=== PATIENT | male | born 1955 | race Two or more races ===

== ENCOUNTER 2022-05-22 08:35 | Day surgery (SDC) | payer OTHER ==
[~2022-05-22] VITALS: Ht 175.3 cm; Wt 72.6 kg
[~2022-05-22 08:35] MED LIST: ACETAMINOP PO; CODEINE PO; DICLOFENAC PO; ULTRAM50 MG PO
== END 2022-05-22 18:30 | disposition home or self-care (01) ==
LOC: CIR.AMB 08:35
PROVIDERS: ATTEND Urology
DX: C67.8 Malignant neoplasm of overlapping sites of bladder (principal); N40.0 Benign prostatic hyperplasia without lower urinary tract symptoms; Z20.822 Contact with and (suspected) exposure to COVID-19; Z71.6 Tobacco abuse counseling; F17.210 Nicotine dependence, cigarettes, uncomplicated

== ENCOUNTER 2023-09-30 12:09 | Outpatient (CLI) | payer OTHER | END 2023-09-30 12:11 | disposition home or self-care (01) | LOC: NUCLEAR 12:09 | PROVIDERS: ATTEND Urology | DX: N13.1 Hydronephrosis with ureteral stricture, not elsewhere classified (principal) | CPT/HCPCS: 78709; A9539 ==